=== PATIENT | female | born 1955 | race Caucasian/White ===

== ENCOUNTER 2018-12-01 11:03 | Emergency (ER) | payer MEDICARE ==
[~2018-12-01] VITALS: Ht 157.5 cm; Wt 53.1 kg
[~2018-12-01 11:03] MED LIST: AUGMENTIN 875-1 EACH PO
--- OUTSIDE RECORDS SUMMARY | 2018-12-01 11:58 | XMS REPORT ---
Author Author [facility] Address Unknown Phone Unavailable Care Team Providers Care Education Specialist Name Role Phone Unavailable Unavailable Problems This patient has no known problems. Allergies, Adverse Reactions, Alerts This patient has no known allergies or adverse reactions. Medications This patient has no known medications. Encounters Start Date/Time End Date/Time Encounter Type Admission Type Attending [facility] Care Department Encounter ID 2017-02-07 16:39:27 2017-02-07 16:39:27 Emergency [facility] [id number] 2016-12-27 05:22:44 2016-12-27 05:22:44 Emergency [facility] [id number] 2016-12-27 02:49:01 2016-12-27 02:49:01 Emergency [facility] [id number]
[2018-12-01] MEDS ORDERED: TETANUS/DIPHTHERIA TOX ADULT 0.5 ML SYR IM ONE (12:30)
--- NOTE | 2018-12-01 13:11 | Diagnostic Imaging Report ---
EXAMINATION: KNEE RIGHT THREE VIEWS INDICATION: Trauma COMPARISON: None FINDINGS: No acute fracture or dislocation. Alignment is anatomic. Mild degenerative changes. No joint effusion. Scattered vascular calcifications. IMPRESSION: No acute osseous injury. Signed by: Lito Meier MD on 12/01/2018 1:08 PM
--- NOTE | 2018-12-01 13:21 | Diagnostic Imaging Report ---
Exams: Head and cervical spine CTs without IV contrast History: Trauma, fall Comparison studies: None Technique: Axial images were obtained from the brain and cervical spine. Coronal and sagittal images reconstructed from the axial data. Dose modulation, iterative reconstruction, and/or weight based adjustment of the mA/kV was utilized to reduce the radiation dose to as low as reasonably achievable. Intravenous contrast: None Findings: Head CT: Scalp and bones: A 17 mm defect within the right paramedian frontal scalp is without underlying fracture. No retained hyperdense foreign body. Extra-axial spaces: No masses. No fluid collections. Brain sulci: Mildly prominent. Ventricles: Mild compensatory dilatation. No hydrocephalus. Parenchyma: No mass, acute hemorrhage or acute cortical vascular insults. A few scattered hypodensities in the supratentorial white matter are nonspecific but most compatible with chronic small vessel ischemic changes. Sellar/suprasellar region: No abnormalities. Craniocervical junction: The foramen magnum is patent. No Chiari one malformation. Included para nasal sinuses: Clear. Middle ear mastoid cavities: Clear. Cervical spine CT: Fractures: None. Soft tissues: No gross acute abnormalities. Atlantoaxial articulation: Intact. Alignment: Straightened cervical curvature may be positional. Minimal anterolisthesis of C3 on C4 and C4 on C5 and minimal retrolisthesis of C5 on C6 are most likely degenerative in etiology. Cervicomedullary junction: No abnormalities. The foramen magnum is patent. Vertebrae: Demineralized bones. No infection. Incidental nonaggressive-appearing 3 mm sclerotic lesion in the C3 vertebral body, possibly bone island. No other neoplasm. Degenerative changes: Moderate degenerative changes at the atlantodental articulation Disc degeneration, mild from C2 to C4, moderate from C4 to C7 and mild at C7-T1. Disc osteophyte complexes at C4-C5, C5-C6 and C6-C7 indent the thecal sac or the do not result in significant canal stenosis. Advanced multilevel facet arthrosis. Multilevel uncovertebral facet arthrosis result in multilevel foraminal stenosis (moderate left at C3-C4, mild bilaterally at C4-C5, moderate bilaterally at C5-C6 and at C6-C7). IMPRESSION: Head CT: 1. Right paramedian frontal scalp defect without underlying fracture or retained hyperdense foreign body. 2. No acute intracranial abnormalities. 3. Mild general parenchymal volume loss. 4. Mild chronic microvascular ischemic changes. Cervical spine CT: 1. No cervical spine fracture. 2. Mild multilevel listhesis is most likely degenerative in the. 3. Moderate multilevel degenerative changes as described. 4. Demineralized bones. Cannot exclude ligament, spinal cord and or vascular abnormalities on the basis of this examination. Signed by: Dr. Tristan Martinez M.D. on 12/01/2018 1:18 PM
[2018-12-01] MEDS ORDERED: NEOMYCIN/POLYMYX/BACITR OINT 0.9 GM PKT TOP ONE (13:30)
== END 2018-12-01 13:41 | disposition home or self-care (01) ==
LOC: ER 11:03
DX: S01.81XA Laceration without foreign body of other part of head, initial encounter (principal); S80.01XA Contusion of right knee, initial encounter; W01.0XXA Fall on same level from slipping, tripping and stumbling without subsequent striking against object, initial encounter; Y93.01 Activity, walking, marching and hiking; Y92.008 Other place in unspecified non-institutional (private) residence as the place of occurrence of the external cause
CPT/HCPCS: 70450; 72125; 99284